=== PATIENT | male | born 1995 | race Caucasian/White ===

== ENCOUNTER 2020-04-20 03:22 | Inpatient (IN) ==
[2020-04-20] MEDS ORDERED: MULTI-VITAMIN INFUSION 10 ML, THIAMINE HCL 100 MG, FOLIC ACID 1 MG in SODIUM CHLORIDE 0... IV ONE ×2 (03:56→08:00)
[2020-04-20] MEDS ORDERED: LORazepam 1 MG/2 ML VIAL IV STA (03:56)
[2020-04-20 04:35] LABS: Appearance Urine Clear (Clear); Bilirubin Urine Negative (Negative); Blood Urine Negative (Negative); Color Urine Yellow; Glucose Urine UA Negative (Negative); Ketones Urine Negative (Negative); Leukocyte Esterase Urine Negative (Negative); Nitrite Urine Negative (Negative); Protein Urine Negative (Negative); Specific Gravity Urine 1.004 (1.000-1.030); Urobilinogen Urine Negative (Negative)
[2020-04-20 04:42] LABS: Partial Thromboplastin Ratio 0.8; Partial Thromboplastin Time 23.3 Seconds (21.0-31.0); Prothrombin Time 10.7 Seconds (9.0-12.0)
[2020-04-20 04:47] LABS: Basophils # (auto) 0.01 K/uL (0-0.2); Basophils % (auto) 0.1 %; Eosinophils # (auto) 0.01 K/uL (0-0.5); Eosinophils % (auto) 0.1 %; Hematocrit (blood only) 40.3 % (42-52); Hemoglobin 13.8 g/dL (14.0-18.0); Immature Granulocytes # (auto) 0.02 K/uL (0.00-0.02); Immature Granulocytes % (auto) 0.2 %; Lymphocytes # (auto) 0.69 K/uL (1.2-3.4); Lymphocytes % (auto) 6.8 %; Mean Corpuscular Hemoglobin 32.1 pg (25-34); Mean Corpuscular Hgb Conc 34.2 g/dL (32-36); Mean Corpuscular Volume 93.7 fL (80-100); Mean Platelet Volume 9.6 fL (7.4-10.4); Monocytes # (auto) 0.92 K/uL (0.11-0.59); Neutrophils # (auto) 8.56 K/uL (1.4-6.5); Neutrophils % (auto) 83.8 %; Platelet Count 214 K/uL (130-400); RDW Coefficient of Variation 13.1 % (11.5-14.5); RDW Standard Deviation 44.7 fL (36.4-46.3); White Blood Count 10.21 K/uL (4.8-10.8)
--- NOTE | 2020-04-20 04:51 | Emergency Department Note ---
History of Present Illness General Chief complaint: Alcohol Withdrawal Stated complaint: ALCOHOL WITHDRAWAL,CONFUSION History of Present Illness Maximum Pain Intensity: 6 This is a 25-year-old male presenting to the emergency department for alcohol withdrawal symptoms. The patient is an admitted alcoholic. It is very common for him to drink 15 or more beers on a daily basis. He also goes through a handle of whiskey on the weekend. This has been ongoing for several months if not longer. The patient evidently was seen at this facility a week ago for groin pain and possible rectal bleeding. At that time he had blood work that did show transaminitis which was felt to be from his alcohol use. The patient is very concerned about this, and is now committed to detoxing from alcohol. The patient states that on Friday, 3 days ago, he significantly decreased his drinking level. He is still having a drink roughly every 2 hours, which is roughly half of his normal rate. Tonight the patient began having irritation, irritability, strange sensation in his arms, as well as some self-reported confusion. He has not had chest pain, chest tightness, or shortness of breath. The patient considers himself otherwise usually healthy and rates his current discomfort a 7/10. Home Medications Home Medications Medication Instructions Recorded Confirmed Type lidocaine 1 patch TOP DAILY #15 ea 04/13/20 04/20/20 Rx Allergies Allergy/AdvReac Type Severity Reaction Status Date / Time No Known Allergies Allergy Unverified 04/20/20 03:36 Past Med/Surg History Medical History (Updated 04/20/20 @ 06:31 by Angeline Mullen DO) Alcohol dependence Surgical History (Updated 04/20/20 @ 04:50 by Gregg Fuentes PA-C) No significant past surgical history Family History (Updated 04/20/20 @ 06:29 by Angeline Mullen DO) Other Asthma Hypertension Social History (Updated 04/20/20 @ 06:29 by Angeline Mullen DO) Smoking Status: Never smoker Second Hand Exposure: No; Hx Alcohol Use: Yes Alcohol type: beer and hard liquor Hx Substance Use: No Preferred Language: Frisian Communication Ability: Effective 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 Beliefs That Will Affect Care: None marital status: Current Living Situation: Spouse Feels Safe at Home: Yes Assistive Devices: None Review of Systems A total of 10 systems reviewed and were otherwise negative Physical Exam Vital Signs Vital Signs - 24 hr 04/20/20 03:30 04/20/20 03:56 04/20/20 05:23 Temperature 37.2 C Temperature Source Oral Pulse Rate 125 H 94 H Pulse Rate [Apical] 98 H Respiratory Rate 18 18 18 Blood Pressure 154/96 H Blood Pressure [Right Arm] 135/80 Blood Pressure Mean 115 Blood Pressure Mean [Right Arm] 98 Blood Pressure Position [Right Arm] Lying Pulse Oximetry 96 96 96 Oxygen Delivery Method Room Air Room Air Free Flow/Blow- by Room Air Free Flow/Blow- by Sepsis Recent Fever Within 48 Hours No Sepsis New/Unexplained Change in Mental Status N/A Sepsis Action Taken by Nursing No Action Required VITALS: Vitals are noted on the nurse's note and reviewed by myself. Vital signs notable tachycardia GENERAL: Anxious appearing white male who is otherwise pleasant and cooperative HEAD: Normocephalic atraumatic. EARS: External ear normal. External auditory canals clear, tympanic membranes pearly lanier without erythema or effusion bilaterally. EYES: Pupils equal round and reactive to light and accommodation. Conjunctivae without injection, sclerae without icterus. Extraocular movements intact. NOSE: Patent, turbinates without inflammation or discharge. MOUTH: Mucous membranes moist. Tonsils are not enlarged. Pharynx without erythema, blood, or exudate. Uvula midline. Airway patent. NECK: Supple without nuchal rigidity. No lymphadenopathy. No thyromegaly. Cervical spine is nontender. HEART: Tachycardic rate with regular rhythm LUNGS: Clear to auscultation bilaterally without wheezes, rales or rhonchi. No retractions or accessory muscle use. ABDOMEN: Positive normal bowel sounds x 4. Soft, nontender, without masses or organomegaly. No guarding or rebound tenderness. MUSCULOSKELETAL: No muscle atrophy, erythema, or edema noted. Full range of motion in all extremities. NEURO: Patient was alert and oriented to person place and time. CN II through XII grossly intact. SKIN: The skin was without rashes, erythema, edema, or bruising. Capillary refill less than 2 seconds. Course Administered Medications Folic Acid (Folic Acid 1 Mg Tab) 1 mg PO QAM [facility] Stop: 05/20/20 08:59 Last Admin: 04/20/20 08:40 Dose: 1 mg Documented by: [id number] Sodium Chloride (Nss 1000ml) 1,000 mls @ 100 mls/hr IV .Q10H KEO Stop: 05/20/20 18:59 Last Admin: 04/20/20 20:04 Dose: 100 mls/hr Documented by: [id number] Thiamine HCl (Thiamine Hcl 100 Mg Tab) 200 mg PO BID KEO Stop: 05/20/20 20:59 Last Admin: 04/20/20 20:05 Dose: 200 mg Documented by: [id number] Discontinued Medications Diazepam (Diazepam 5 Mg Tablet) 20 mg PO NOW ONE Stop: 04/20/20 07:42 Last Admin: 04/20/20 08:34 Dose: 20 mg Documented by: [id number] Gabapentin (Gabapentin 600 Mg Tab) 1,200 mg PO NOW ONE Stop: 04/20/20 08:31 Last Admin: 04/20/20 08:39 Dose: 1,200 mg Documented by: [id number] Gabapentin (Gabapentin 600 Mg Tab) 600 mg PO Q6H KEO Stop: 04/20/20 20:01 Last Admin: 04/20/20 20:05 Dose: 600 mg Documented by: [id number] Admin: 04/20/20 13:22 Dose: 600 mg Documented by: [id number] Multivitamins 10 ml/ Thiamine HCl 100 mg/ Folic Acid 1 mg/Sodium Chloride 1,011.2 mls @ 1,011.2 mls/hr IV .Q1H ONE Stop: 04/20/20 04:55 Last Infusion: 04/20/20 06:38 Dose: 0 mls/hr Documented by: [id number] Admin: 04/20/20 05:04 Dose: 1,011.2 mls/hr Documented by: [id number] Lorazepam (Ativan) 1 mg in 2 mls @ 2 mls/min IV NOW STA Stop: 04/20/20 03:57 Last Admin: 04/20/20 04:20 Dose: 2 mls/min Documented by: [id number] Multivitamins 10 ml/ Thiamine HCl 100 mg/ Folic Acid 1 mg/Sodium Chloride 1,011.2 mls @ 500 mls/hr IV .Q2H2M ONE Stop: 04/20/20 10:01 Last Infusion: 04/20/20 10:33 Dose: 0 mls/hr Documented by: [id number] Admin: 04/20/20 08:28 Dose: 500 mls/hr Documented by: [id number] Ketorolac Tromethamine (Ketorolac Tromethamine 15 Mg/Ml Vial) 15 mg IV NOW ONE Stop: 04/20/20 20:39 Last Admin: 04/20/20 20:49 Dose: 15 mg Documented by: [id number] Thiamine HCl (Thiamine Hcl 100 Mg Tab) [facility] [place] Stop: 05/20/20 08:59 Last Admin: 04/20/20 08:40 Dose: 100 mg Documented by: [id number] Medical Decision Making Differential Diagnosis Differential diagnosis: Etiologies such as alcohol withdrawal, DTs, alcohol intoxication, toxicological, infection, hypoglycemia, electrolyte abnormalities, cardiac sources, intracerebral event, neurologic, as well as others were entertained. Laboratory Data Result diagrams: 04/20/20 04:18 04/20/20 04:18 Lab Results 04/20/20 04/20/20 04/20/20 Range/Units 04:18 04:18 04:18 WBC 10.21 (4.8-10.8) K/uL RBC 4.30 L (4.7-6.1) M/uL Hgb 13.8 L (14.0-18.0) g/dL Hct 40.3 L (42-52) % MCV 93.7 (80-100) fL MCH 32.1 (25-34) pg MCHC 34.2 (32-36) g/dL RDW Std Deviation 44.7 (36.4-46.3) fL RDW Coeff of Pee 13.1 (11.5-14.5) % Plt Count 214 (130-400) K/uL MPV 9.6 (7.4-10.4) fL Immature Gran % (Auto) 0.2 % Neut % (Auto) 83.8 % Lymph % (Auto) 6.8 % Sampson % (Auto) 9.0 % Eos % (Auto) 0.1 % Baso % (Auto) 0.1 % Neut # (Auto) 8.56 H (1.4-6.5) K/uL Lymph # (Auto) 0.69 L (1.2-3.4) K/uL Sampson # (Auto) 0.92 H (0.11-0.59) K/uL Eos # (Auto) 0.01 (0-0.5) K/uL Baso # (Auto) 0.01 (0-0.2) K/uL Immature Gran # (Auto) 0.02 (0.00-0.02) K/uL PT 10.7 (9.0-12.0) Seconds INR 1.0 (0.9-1.1) APTT 23.3 (21.0-31.0) Seconds PTT Ratio 0.8 Sodium 134 L (136-145) mmol/L Potassium 4.1 (3.5-5.1) mmol/L Chloride 98 (98-107) mmol/L Carbon Dioxide 27 (21-32) mmol/L Anion Gap 9.0 (3-11) BUN 4 L (7-18) mg/dl Creatinine 0.80 (0.6-1.4) mg/dl Est Cr Clr Drug Dosing 137.1 ml/min Est GFR ( Amer) 141.9 Est GFR (Non-Af Amer) 122.4 BUN/Creatinine Ratio 5.2 L (10-20) Glucose 100 H (70-99) mg/dl Calcium 9.3 (8.5-10.1) mg/dl Magnesium 2.1 (1.8-2.4) mg/dl Total Bilirubin 0.9 (0.2-1) mg/dl AST 244 H (15-37) U/L ALT 160 H (12-78) U/L Alkaline Phosphatase 108 (45-117) U/L Troponin I < 0.015 (0-0.045) ng/ml Total Protein 7.6 (6.4-8.2) gm/dl Albumin 3.8 (3.4-5.0) gm/dl Globulin 3.8 (2.5-4.0) gm/dl Albumin/Globulin Ratio 1.0 (0.9-2) Lipase 101 (73-393) U/L TSH 4.680 H (0.300-4.500) uIu/ml Free T4 1.27 (0.8-1.6) ng/dl Urine Color Urine Appearance (Clear) Urine pH (4.5-7.5) Ur Specific [place] (1.000-1.030) Urine Protein (Negative) Urine Glucose (UA) (Negative) Urine Ketones (Negative) Urine Blood (Negative) Urine Nitrite (Negative) Urine Bilirubin (Negative) Urine Urobilinogen (Negative) Ur Leukocyte Esterase (Negative) Salicylates (2.8-20) mg/dl Urine Opiates Screen (Neg) Ur Methadone, Qual (Neg) Acetaminophen (10-30) ug/ml Urine Barbiturates (Neg) Ur Phencyclidine (PCP) (Neg) U Amphetamin/Meth Scrn (Neg) MDMA (Ecstasy) Screen (Neg) U Benzodiazepines Scrn (Neg) Ur Cocaine Metabolite (Neg) U Marijuana (THC) Screen (Neg) Ethyl Alcohol mg/dL (0-3) mg/dl 04/20/20 04/20/20 04/20/20 Range/Units 04:18 04:18 04:20 WBC (4.8-10.8) K/uL RBC (4.7-6.1) M/uL Hgb (14.0-18.0) g/dL Hct (42-52) % MCV (80-100) fL MCH (25-34) pg MCHC (32-36) g/dL RDW Std Deviation (36.4-46.3) fL RDW Coeff of Pee (11.5-14.5) % Plt Count (130-400) K/uL MPV (7.4-10.4) fL Immature Gran % (Auto) % Neut % (Auto) % Lymph % (Auto) % Sampson % (Auto) % Eos % (Auto) % Baso % (Auto) % Neut # (Auto) (1.4-6.5) K/uL Lymph # (Auto) (1.2-3.4) K/uL Sampson # (Auto) (0.11-0.59) K/uL Eos # (Auto) (0-0.5) K/uL Baso # (Auto) (0-0.2) K/uL Immature Gran # (Auto) (0.00-0.02) K/uL PT (9.0-12.0) Seconds INR (0.9-1.1) APTT (21.0-31.0) Seconds PTT Ratio Sodium (136-145) mmol/L Potassium (3.5-5.1) mmol/L Chloride (98-107) mmol/L Carbon Dioxide (21-32) mmol/L Anion Gap (3-11) BUN (7-18) mg/dl Creatinine (0.6-1.4) mg/dl Est Cr Clr Drug Dosing ml/min Est GFR ( Amer) Est GFR (Non-Af Amer) BUN/Creatinine Ratio (10-20) Glucose (70-99) mg/dl Calcium (8.5-10.1) mg/dl Magnesium (1.8-2.4) mg/dl Total Bilirubin (0.2-1) mg/dl AST (15-37) U/L ALT (12-78) U/L Alkaline Phosphatase (45-117) U/L Troponin I (0-0.045) ng/ml Total Protein (6.4-8.2) gm/dl Albumin (3.4-5.0) gm/dl Globulin (2.5-4.0) gm/dl Albumin/Globulin Ratio (0.9-2) Lipase (73-393) U/L TSH (0.300-4.500) uIu/ml Free T4 (0.8-1.6) ng/dl Urine Color Yellow Urine Appearance Clear (Clear) Urine pH 8.0 H (4.5-7.5) Ur Specific [place] 1.004 (1.000-1.030) Urine Protein Negative (Negative) Urine Glucose (UA) Negative (Negative) Urine Ketones Negative (Negative) Urine Blood Negative (Negative) Urine Nitrite Negative (Negative) Urine Bilirubin Negative (Negative) Urine Urobilinogen Negative (Negative) Ur Leukocyte Esterase Negative (Negative) Salicylates < 1.7 L (2.8-20) mg/dl Urine Opiates Screen Neg (Neg) Ur Methadone, Qual Neg (Neg) Acetaminophen < 2 L (10-30) ug/ml Urine Barbiturates Neg (Neg) Ur Phencyclidine (PCP) Neg (Neg) U Amphetamin/Meth Scrn Neg (Neg) MDMA (Ecstasy) Screen Neg (Neg) U Benzodiazepines Scrn Neg (Neg) Ur Cocaine Metabolite Neg (Neg) U Marijuana (THC) Screen Neg (Neg) Ethyl Alcohol mg/dL (0-3) mg/dl 04/20/20 Range/Units 04:22 WBC (4.8-10.8) K/uL RBC (4.7-6.1) M/uL Hgb (14.0-18.0) g/dL Hct (42-52) % MCV (80-100) fL MCH (25-34) pg MCHC (32-36) g/dL RDW Std Deviation (36.4-46.3) fL RDW Coeff of Pee (11.5-14.5) % Plt Count (130-400) K/uL MPV (7.4-10.4) fL Immature Gran % (Auto) % Neut % (Auto) % Lymph % (Auto) % Sampson % (Auto) % Eos % (Auto) % Baso % (Auto) % Neut # (Auto) (1.4-6.5) K/uL Lymph # (Auto) (1.2-3.4) K/uL Sampson # (Auto) (0.11-0.59) K/uL Eos # (Auto) (0-0.5) K/uL Baso # (Auto) (0-0.2) K/uL Immature Gran # (Auto) (0.00-0.02) K/uL PT (9.0-12.0) Seconds INR (0.9-1.1) APTT (21.0-31.0) Seconds PTT Ratio Sodium (136-145) mmol/L Potassium (3.5-5.1) mmol/L Chloride (98-107) mmol/L Carbon Dioxide (21-32) mmol/L Anion Gap (3-11) BUN (7-18) mg/dl Creatinine (0.6-1.4) mg/dl Est Cr Clr Drug Dosing ml/min Est GFR ( Amer) Est GFR (Non-Af Amer) BUN/Creatinine Ratio (10-20) Glucose (70-99) mg/dl Calcium (8.5-10.1) mg/dl Magnesium (1.8-2.4) mg/dl Total Bilirubin (0.2-1) mg/dl AST (15-37) U/L ALT (12-78) U/L Alkaline Phosphatase (45-117) U/L Troponin I (0-0.045) ng/ml Total Protein (6.4-8.2) gm/dl Albumin (3.4-5.0) gm/dl Globulin (2.5-4.0) gm/dl Albumin/Globulin Ratio (0.9-2) Lipase (73-393) U/L TSH (0.300-4.500) uIu/ml Free T4 (0.8-1.6) ng/dl Urine Color Urine Appearance (Clear) Urine pH (4.5-7.5) Ur Specific [place] (1.000-1.030) Urine Protein (Negative) Urine Glucose (UA) (Negative) Urine Ketones (Negative) Urine Blood (Negative) Urine Nitrite (Negative) Urine Bilirubin (Negative) Urine Urobilinogen (Negative) Ur Leukocyte Esterase (Negative) Salicylates (2.8-20) mg/dl Urine Opiates Screen (Neg) Ur Methadone, Qual (Neg) Acetaminophen (10-30) ug/ml Urine Barbiturates (Neg) Ur Phencyclidine (PCP) (Neg) U Amphetamin/Meth Scrn (Neg) MDMA (Ecstasy) Screen (Neg) U Benzodiazepines Scrn (Neg) Ur Cocaine Metabolite (Neg) U Marijuana (THC) Screen (Neg) Ethyl Alcohol mg/dL 49.0 H (0-3) mg/dl MDM Narrative Physical exam and history were performed. Nursing notes, EMR, and Medication List were personally reviewed. Patient appears to have a history of alcohol dependence and abuse. He is complaining of more confusion today and difficulty with vision. On examination he seems to relate a good story and is not slurring his words. He does not appear grossly intoxicated, however on initial presentation he is cardiac. IV access was established and labs were obtained. The patient was given a banana bag and IV Ativan. The patient's blood work is as above and was reviewed. He does not have a significant white blood cell count. He is minimally anemic at 13.8. Transaminases are slightly elevated, however they are improved from 1 week ago. Lipase is normal. TSH is minimally elevated at 4.6 with a normal free T4. Urine is without gross evidence of infection. Tylenol and salicylates are negative. Alcohol is 49. Patient was reevaluated multiple times throughout the course of his stay. He does not appear well for discharge home. He does voice a strong desire to quit drinking, and based on his level of alcohol use I am highly concerned for him withdrawing. The case was discussed with the on-call hospitalist, who agreed to evaluate the patient here in the ER. Please see their dictation for further patient course, plan, and disposition. The chart was completed utilizing [employer] 360 Speech Voice Recognition Software. Gra mmatical errors, random word insertions, pronoun errors, and incomplete sentences are an occasional consequence of this system due to software limitations, ambient noise, and hardware issues. Any formal questions or concerns about the content, text, or information contained within the body of this dictation should be directly addressed to the provider for clarification. . Impression & Plan Alcohol withdrawal, Transaminitis, Alcohol dependence Discharge Plan Visit Data Chief Complaint: Alcohol Withdrawal Stated Complaint: ALCOHOL WITHDRAWAL,CONFUSION ED Provider: Farzana Elder ED Midlevel Provider: Gregg Fuentes Discharge Problem: Alcohol withdrawal, Transaminitis, Alcohol dependence Patient Disposition: Admitted As Inpatient Discharge Instructions Interventions: ED Discharge Assessment Last Done: 04/20/20 07:04
[2020-04-20 05:02] LABS: Alanine Aminotransferase 160 U/L (12-78); Albumin Level 3.8 gm/dl (3.4-5.0); Alkaline Phosphatase 108 U/L (45-117); Aspartate Aminotransferase 244 U/L (15-37); BUN Creatinine Ratio 5.2 (10-20); Bilirubin,Total 0.9 mg/dl (0.2-1); Blood Urea Nitrogen 4 mg/dl (7-18); Calcium 9.3 mg/dl (8.5-10.1); Carbon Dioxide 27 mmol/L (21-32); Chloride 98 mmol/L (98-107); Creatinine Clr Calc Pharmacy 137.1 ml/min; Est GFR (African American) 141.9; Est GFR (Non-African American) 122.4; Globulin 3.8 gm/dl (2.5-4.0); Glucose 100 mg/dl (70-99); Lipase 101 U/L (73-393); Magnesium 2.1 mg/dl (1.8-2.4); Potassium 4.1 mmol/L (3.5-5.1); Sodium 134 mmol/L (136-145); Total Protein 7.6 gm/dl (6.4-8.2)
[2020-04-20 05:04] LABS: Acetaminophen < 2 ug/ml (10-30)
[2020-04-20 05:07] LABS: Salicylate < 1.7 mg/dl (2.8-20)
[2020-04-20 05:08] LABS: Amphetamines+Metham, Urine Neg (Neg); Barbiturates, Urine Neg (Neg); Benzodiazepine, Urine Neg (Neg); Cocaine, Urine Neg (Neg); MDMA (Ecstacy), Urine Neg (Neg); Methadone, Urine Neg (Neg); Opiate, Urine Neg (Neg); Phencyclidine, Urine Neg (Neg)
[2020-04-20 05:10] LABS: Troponin I < 0.015 ng/ml (0-0.045)
[2020-04-20 05:23] LABS: T4 Free Thyroxine 1.27 ng/dl (0.8-1.6)
--- NOTE | 2020-04-20 06:39 | History & Physical Report ---
Date of Service April 20, 2020 Assessment & Plan (1) Alcohol dependence: 25yo C male with alcohol dependence presenting with symptoms of EtOH withdrawal. Patient is requesting to medically detox at this time. Reports drinking 8-15 drinks per day over the last few years. Has been decreasing his intake over the last three days in attempt to wean himself off. He reports confusion/memory loss and feeling "out of place" today which brought him to the ER. Patient is tremulous. EtOH level=49 Imaging from previous ER visit with fatty infiltration of the liver. Patient with elevated AST and ALT, 244 and 160, respectively. Synthetic liver function preserved with normal albumin, INR, bilirubin and platelets. -Admit to PCU -Check B12, Folate levels -Monitor labs, electrolytes and liver studies -Valium 20mg po x 1 -Gabapentin taper -Thiamine and Folate supplement -AWSS with IV Ativan for active withdrawal protocol -Thiamine and B12 supplementation daily -Patient congratulated on his steps taken toward more positive health - he wishes to be provided with information regarding rehab sources, AA meetings, etc F/E/N - Banana bag x 500mL, electrolytes WNL, regular diet as tolerated Ppx - Low risk for DVT Code - Full Dispo - Admit to PCU Present on Admission?: Yes History of Present Illness Chief Complaint: alcohol withdrawal Primary Care Provider: [facility] Virgil Bartholomew is a 25yo C male presenting for alcohol detoxification. He reports heavy EtOH consumption over the past few years. Over the last year he has been drinking mainly beer - consumes 8-12 beers per day, at times more than 15 per day. He drinks whiskey on the weekends and will drink a handle of whiskey over two days. He was seen at [facility] on 04/13/20 with complaint of testicular pain and rectal bleeding. He had labs at that time which revealed elevated transaminase levels (FHF=232 and EQD=535) He also had CT imaging that confirmed marked fatty infiltration of the liver. Patient was counselled on his EtOH consumption at that time. Since then he has been trying to cut down on his alcohol intake and make positive life changes. He has been significantly decreasing his EtOH intake over the last three days - still drinking every 2 hours or so. He had an episode of altered sensorium today - transient confusion, forgetfulness and memory loss. He states he felt "very out of place". This is what prompted him to come to the ER. 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 He is and lives with his . He works from home and denies any sick contacts or positive Covid-19 contacts. No seizure No fevers/chills/CP/cough/SOB/nausea/vomiting/constipation. He has had some diarrhea. No additional complaints. ER Course: Ativan 1mg, Banana bag Allergies Allergy/AdvReac Type Severity Reaction Status Date / Time No Known Allergies Allergy Unverified 04/20/20 03:36 Home Medications Home Medications Medication Instructions Recorded Confirmed Type lidocaine 1 patch TOP DAILY #15 ea 04/13/20 04/20/20 Rx Past Med/Surg History Medical History (Updated 04/20/20 @ 06:31 by Angeline Mullen DO) Alcohol dependence Surgical History (Updated 04/20/20 @ 04:50 by Gregg Fuentes PA-C) No significant past surgical history Family History (Updated 04/20/20 @ 06:29 by Angeline Mullen DO) Other Asthma Hypertension Social History (Updated 04/20/20 @ 06:29 by Angeline Mullen DO) Smoking Status: Never smoker Hx Alcohol Use: Yes Hx Substance Use: No Preferred Language: Greek Feels Safe at Home: Yes Review of Systems Review of Systems: All systems reviewed & are unremarkable except as noted in HPI & below Physical Exam Physical Exam: General: patient resting comfortably, NAD, non-toxic in appearance, AA&O x 4, tremulous Skin: warm, dry, intact, no rashes or lesions HEENT: NC/AT, PERRL, EOMI, anicteric sclera, conjunctiva without injection, external ear normal to inspection and nontender, nares patent, moist mucus membranes, dentition intact, no oropharyngeal lesions, neck supple, trachea midline, no LAD, no thyromegaly, no JVD Heart: +S1/S2, regular, no m/r/g Lungs: equal air entry bilaterally, no rales/rhonchi/wheezes Abd: +BS, soft, NT/ND, no masses/organomegaly/ascites Ext: warm, 2+ pulses in UE/LE bilaterally, no clubbing/cyanosis or edema Neuro: nonfocal, patient AA&O x 4, speech intact, no facial droop, moving all extremities on command with equal strength 5/5 Results & Data Results & Data ([facility]) Vital Signs (Past 12 Hours) Vital Signs Temp Pulse Resp BP Pulse Ox 04/20/20 03:56 94 H 18 96 04/20/20 03:30 37.2 C 125 H 18 154/96 H 96 Laboratory Results Lab Results 04/20/20 04/20/20 04/20/20 Range/Units 04:18 04:18 04:18 WBC 10.21 (4.8-10.8) K/uL RBC 4.30 L (4.7-6.1) M/uL Hgb 13.8 L (14.0-18.0) g/dL Hct 40.3 L (42-52) % MCV 93.7 (80-100) fL MCH 32.1 (25-34) pg MCHC 34.2 (32-36) g/dL RDW Std Deviation 44.7 (36.4-46.3) fL RDW Coeff of Pee 13.1 (11.5-14.5) % Plt Count 214 (130-400) K/uL MPV 9.6 (7.4-10.4) fL Immature Gran % (Auto) 0.2 % Neut % (Auto) 83.8 % Lymph % (Auto) 6.8 % [place] % (Auto) 9.0 % Eos % (Auto) 0.1 % Baso % (Auto) 0.1 % Neut # (Auto) 8.56 H (1.4-6.5) K/uL Lymph # (Auto) 0.69 L (1.2-3.4) K/uL [place] # (Auto) 0.92 H (0.11-0.59) K/uL Eos # (Auto) 0.01 (0-0.5) K/uL Baso # (Auto) 0.01 (0-0.2) K/uL Immature Gran # (Auto) 0.02 (0.00-0.02) K/uL PT 10.7 (9.0-12.0) Seconds INR 1.0 (0.9-1.1) APTT 23.3 (21.0-31.0) Seconds PTT Ratio 0.8 Sodium 134 L (136-145) mmol/L Potassium 4.1 (3.5-5.1) mmol/L Chloride 98 (98-107) mmol/L Carbon Dioxide 27 (21-32) mmol/L Anion Gap 9.0 (3-11) BUN 4 L (7-18) mg/dl Creatinine 0.80 (0.6-1.4) mg/dl Est Cr Clr Drug Dosing 137.1 ml/min Est GFR ( Amer) 141.9 Est GFR (Non-Af Amer) 122.4 BUN/Creatinine Ratio 5.2 L (10-20) Glucose 100 H (70-99) mg/dl Calcium 9.3 (8.5-10.1) mg/dl Magnesium 2.1 (1.8-2.4) mg/dl Total Bilirubin 0.9 (0.2-1) mg/dl AST 244 H (15-37) U/L ALT 160 H (12-78) U/L Alkaline Phosphatase 108 (45-117) U/L Troponin I < 0.015 (0-0.045) ng/ml Total Protein 7.6 (6.4-8.2) gm/dl Albumin 3.8 (3.4-5.0) gm/dl Globulin 3.8 (2.5-4.0) gm/dl Albumin/Globulin Ratio 1.0 (0.9-2) Lipase 101 (73-393) U/L TSH 4.680 H (0.300-4.500) uIu/ml Free T4 1.27 (0.8-1.6) ng/dl Urine Color Urine Appearance (Clear) Urine pH (4.5-7.5) Ur Specific [place] (1.000-1.030) Urine Protein (Negative) Urine Glucose (UA) (Negative) Urine Ketones (Negative) Urine Blood (Negative) Urine Nitrite (Negative) Urine Bilirubin (Negative) Urine Urobilinogen (Negative) Ur Leukocyte Esterase (Negative) Salicylates (2.8-20) mg/dl Urine Opiates Screen (Neg) Ur Methadone, Qual (Neg) Acetaminophen (10-30) ug/ml Urine Barbiturates (Neg) Ur Phencyclidine (PCP) (Neg) U Amphetamin/Meth Scrn (Neg) MDMA (Ecstasy) Screen (Neg) U Benzodiazepines Scrn (Neg) Ur Cocaine Metabolite (Neg) U Marijuana (THC) Screen (Neg) Ethyl Alcohol mg/dL (0-3) mg/dl 04/20/20 04/20/20 04/20/20 Range/Units 04:18 04:18 04:20 WBC (4.8-10.8) K/uL RBC (4.7-6.1) M/uL Hgb (14.0-18.0) g/dL Hct (42-52) % MCV (80-100) fL MCH (25-34) pg MCHC (32-36) g/dL RDW Std Deviation (36.4-46.3) fL RDW Coeff of Pee (11.5-14.5) % Plt Count (130-400) K/uL MPV (7.4-10.4) fL Immature Gran % (Auto) % Neut % (Auto) % Lymph % (Auto) % [place] % (Auto) % Eos % (Auto) % Baso % (Auto) % Neut # (Auto) (1.4-6.5) K/uL Lymph # (Auto) (1.2-3.4) K/uL [place] # (Auto) (0.11-0.59) K/uL Eos # (Auto) (0-0.5) K/uL Baso # (Auto) (0-0.2) K/uL Immature Gran # (Auto) (0.00-0.02) K/uL PT (9.0-12.0) Seconds INR (0.9-1.1) APTT (21.0-31.0) Seconds PTT Ratio Sodium (136-145) mmol/L Potassium (3.5-5.1) mmol/L Chloride (98-107) mmol/L Carbon Dioxide (21-32) mmol/L Anion Gap (3-11) BUN (7-18) mg/dl Creatinine (0.6-1.4) mg/dl Est Cr Clr Drug Dosing ml/min Est GFR ( Amer) Est GFR (Non-Af Amer) BUN/Creatinine Ratio (10-20) Glucose (70-99) mg/dl Calcium (8.5-10.1) mg/dl Magnesium (1.8-2.4) mg/dl Total Bilirubin (0.2-1) mg/dl AST (15-37) U/L ALT (12-78) U/L Alkaline Phosphatase (45-117) U/L Troponin I (0-0.045) ng/ml Total Protein (6.4-8.2) gm/dl Albumin (3.4-5.0) gm/dl Globulin (2.5-4.0) gm/dl Albumin/Globulin Ratio (0.9-2) Lipase (73-393) U/L TSH (0.300-4.500) uIu/ml Free T4 (0.8-1.6) ng/dl Urine Color Yellow Urine Appearance Clear (Clear) Urine pH 8.0 H (4.5-7.5) Ur Specific [place] 1.004 (1.000-1.030) Urine Protein Negative (Negative) Urine Glucose (UA) Negative (Negative) Urine Ketones Negative (Negative) Urine Blood Negative (Negative) Urine Nitrite Negative (Negative) Urine Bilirubin Negative (Negative) Urine Urobilinogen Negative (Negative) Ur Leukocyte Esterase Negative (Negative) Salicylates < 1.7 L (2.8-20) mg/dl Urine Opiates Screen Neg (Neg) Ur Methadone, Qual Neg (Neg) Acetaminophen < 2 L (10-30) ug/ml Urine Barbiturates Neg (Neg) Ur Phencyclidine (PCP) Neg (Neg) U Amphetamin/Meth Scrn Neg (Neg) MDMA (Ecstasy) Screen Neg (Neg) U Benzodiazepines Scrn Neg (Neg) Ur Cocaine Metabolite Neg (Neg) U Marijuana (THC) Screen Neg (Neg) Ethyl Alcohol mg/dL (0-3) mg/dl 04/20/20 Range/Units 04:22 WBC (4.8-10.8) K/uL RBC (4.7-6.1) M/uL Hgb (14.0-18.0) g/dL Hct (42-52) % MCV (80-100) fL MCH (25-34) pg MCHC (32-36) g/dL RDW Std Deviation (36.4-46.3) fL RDW Coeff of Pee (11.5-14.5) % Plt Count (130-400) K/uL MPV (7.4-10.4) fL Immature Gran % (Auto) % Neut % (Auto) % Lymph % (Auto) % [place] % (Auto) % Eos % (Auto) % Baso % (Auto) % Neut # (Auto) (1.4-6.5) K/uL Lymph # (Auto) (1.2-3.4) K/uL [place] # (Auto) (0.11-0.59) K/uL Eos # (Auto) (0-0.5) K/uL Baso # (Auto) (0-0.2) K/uL Immature Gran # (Auto) (0.00-0.02) K/uL PT (9.0-12.0) Seconds INR (0.9-1.1) APTT (21.0-31.0) Seconds PTT Ratio Sodium (136-145) mmol/L Potassium (3.5-5.1) mmol/L Chloride (98-107) mmol/L Carbon Dioxide (21-32) mmol/L Anion Gap (3-11) BUN (7-18) mg/dl Creatinine (0.6-1.4) mg/dl Est Cr Clr Drug Dosing ml/min Est GFR ( Amer) Est GFR (Non-Af Amer) BUN/Creatinine Ratio (10-20) Glucose (70-99) mg/dl Calcium (8.5-10.1) mg/dl Magnesium (1.8-2.4) mg/dl Total Bilirubin (0.2-1) mg/dl AST (15-37) U/L ALT (12-78) U/L Alkaline Phosphatase (45-117) U/L Troponin I (0-0.045) ng/ml Total Protein (6.4-8.2) gm/dl Albumin (3.4-5.0) gm/dl Globulin (2.5-4.0) gm/dl Albumin/Globulin Ratio (0.9-2) Lipase (73-393) U/L TSH (0.300-4.500) uIu/ml Free T4 (0.8-1.6) ng/dl Urine Color Urine Appearance (Clear) Urine pH (4.5-7.5) Ur Specific [place] (1.000-1.030) Urine Protein (Negative) Urine Glucose (UA) (Negative) Urine Ketones (Negative) Urine Blood (Negative) Urine Nitrite (Negative) Urine Bilirubin (Negative) Urine Urobilinogen (Negative) Ur Leukocyte Esterase (Negative) Salicylates (2.8-20) mg/dl Urine Opiates Screen (Neg) Ur Methadone, Qual (Neg) Acetaminophen (10-30) ug/ml Urine Barbiturates (Neg) Ur Phencyclidine (PCP) (Neg) U Amphetamin/Meth Scrn (Neg) MDMA (Ecstasy) Screen (Neg) U Benzodiazepines Scrn (Neg) Ur Cocaine Metabolite (Neg) U Marijuana (THC) Screen (Neg) Ethyl Alcohol mg/dL 49.0 H (0-3) mg/dl Code Status & VTE Plan Code Status Full PG Care Time/CCT Total # of Minutes Spent Total Time Spent with Patient: Total time spent is greater than 50% in coordination of care (as documented) at patient's floor/unit and/or counseling patient: Coding Level of Care Code 99011 Initial Inpt Care Lvl 2 Diagnoses Alcohol dependence F10.232 Substance use status: in withdrawal Complication of substance-induced condition: with perceptual disturbance (1) Alcohol dependence Substance use status: in withdrawal Complication of substance-induced condition: with perceptual disturbance Qualified Code(s): F10.232 - Alcohol dependence with withdrawal with perceptual disturbance
[2020-04-20] MEDS ORDERED: ATIVAN IV ALCOHOL WITHDRAWL IV PRN (07:41)
[2020-04-20] MEDS ORDERED: LORazepam 1 MG/2 ML VIAL IV PRN (07:41)
[2020-04-20] MEDS ORDERED: MAGNESIUM HYDROXIDE SUSP 30 ML UDC PO PRN (07:41)
[2020-04-20] MEDS ORDERED: diazePAM 5 MG TABLET PO ONE (07:41)
[2020-04-20] MEDS ORDERED: LORazepam 3 MG/6 ML VIAL IV PRN (07:41)
[2020-04-20] MEDS ORDERED: ONDANSETRON INJ 2 MG/ML 2 ML VIAL IV PRN (07:41)
[2020-04-20] MEDS ORDERED: GABAPENTIN 1200MG ALCOHOL WITHDRAWAL LOAD PO STA (07:41)
[2020-04-20] MEDS ORDERED: DOCUSATE SODIUM 100 MG CAP PO PRN (07:41)
[2020-04-20] MEDS ORDERED: LORazepam 2 MG/4 ML VIAL IV PRN (07:41)
[2020-04-20] MEDS ORDERED: GABAPENTIN 600 MG TAB PO ONE (08:30)
[2020-04-20] MEDS: FOLIC ACID 1 MG TAB PO SCH (08:40)
[2020-04-20] MEDS ORDERED: THIAMINE HCL 100 MG TAB PO SCH (09:00)
[2020-04-20] MEDS: GABAPENTIN 600 MG TAB PO SCH ×2 (13:22→20:05)
--- NOTE | 2020-04-20 18:59 | Communication Note ---
Date of Service: April 20, 2020 S: patient was sleeping upon my arrival. Awoke easily. Upon awakening he c/o feeling groggy but was oriented x 3. Denied palpitations, diaphoresis, severe anxiety or tremors. Able to tolerate a diet. Tele since admission with NSR. O: VSS, no fever gen - NAD mouth - MMM heart - borderline tachy, s1 s2, no murmur lungs - CTA b/l abd - soft NT ND BS+; no HSM ext - no edema neuro - no tremor labs - Na 134 AST, ALT elevated CBC wnl Cr wnl A/P: 1. alcohol abuse/dependence 2. concern for early alcohol withdrawal 3. hyponatremia 4. alcoholic hepatitis * continue gabapentin protocol * ativan prn per protocol * increase thiamine to 200mg BID * cont MVI, folate supplementation * NS at 100cc/hr * repeat labs in am Patient declining inpatient etoh rehab after d/c; wishes to do everything outpatient. Ted Garcia MD
[2020-04-20] MEDS: SODIUM CHLORIDE 0.9% 1000ML 1,000 ML IV SCH (20:04)
[2020-04-20] MEDS: THIAMINE HCL 100 MG TAB PO SCH (20:05)
[2020-04-20] MEDS ORDERED: KETOROLAC TROMETHAMINE 15 MG/ML VIAL IV ONE (20:38)
[2020-04-21] MEDS: SODIUM CHLORIDE 0.9% 1000ML 1,000 ML IV SCH ×2 (03:27→14:36)
[2020-04-21] MEDS: GABAPENTIN 600 MG TAB PO SCH ×3 (03:27→21:12)
[2020-04-21 06:43] LABS: BUN Creatinine Ratio 7.4 (10-20); Bilirubin Direct 0.3 mg/dl (0-0.2); Bilirubin,Total 0.7 mg/dl (0.2-1); Calcium 8.4 mg/dl (8.5-10.1); Creatinine Clr Calc Pharmacy 140.8 ml/min; Est GFR (African American) 143.4; Est GFR (Non-African American) 123.7; Total Protein 6.5 gm/dl (6.4-8.2)
[2020-04-21] MEDS: THIAMINE HCL 100 MG TAB PO SCH ×2 (08:14→21:12)
[2020-04-21] MEDS: FOLIC ACID 1 MG TAB PO SCH (08:15)
--- NOTE | 2020-04-21 12:31 | Electrocardiogram Report ---
Test Reason : Blood Pressure : / mmHG Vent. Rate : 093 BPM Atrial Rate : 093 BPM P-R Int : 162 ms QRS Dur : 086 ms QT Int : 336 ms P-R-T Axes : 066 029 059 degrees QTc Int : 417 ms Normal sinus rhythm Normal ECG No previous ECGs available Confirmed by Martín Prasad ([id number]) on 04/21/2020 12:30:44 PM Referred By: REFERRED SELF Confirmed By:Martín Prasad
[2020-04-21] MEDS ORDERED: LORazepam 1 MG TAB PO PRN (17:36)
--- NOTE | 2020-04-21 17:42 | Hospitalist Progress Note ---
Date of Service April 21, 2020 Assessment & Plan (1) Alcohol withdrawal: Had confusion just prior to admission. This resolved on hospital day #1. Withdrawal appears to be mild based on IV ativan usage. Continues with gabapentin protocol. Continue thiamine 200mg BID, folic acid, MVI. Cut fluid rate to 50cc/hr - patient overall eating well. He is about 2 days out from his last etoh beverage. If withdrawal was to worsen it would occur tonight into tomorrow. Keep overnight. Observe for worsening symptoms. Assess need for IV ativan. If stable in am with minimal prn ativan usage, and if no worsening of withdrawal, can likely d/c home with remaining gabapentin taper and PO ativan prn. He declines inpatient etoh rehab. Wishes to do outpatient programs. (2) Alcohol dependence: Severe etoh intake (10-15+ drinks/day). Now with withdrawal. See above. (3) Transaminitis: Likely alcoholic hepatitis. Improving AST and ALT. Recheck both in am. (4) Sore throat: In light of COVID-19 spread in the [place] area and on the [facility] campus - and given his new sore throat with myalgias - elected to obtain COVID-19 test today. This returned negative. If symptoms worsen then obtain rapid strep test. (5) Myalgia: See above. COVID-19 testing negative. (6) DVT prophylaxis: Low risk. Encouraged to ambulate. Potential d/c on Friday. Admission and Anticipated Discharge Date Admission Date: April 20, 2020 Subjective tele stable overnight. mild diaphoresis at times. no confusion or delirium. eating well. no nausea, emesis, diarrhea. does report feeling achy in his legs along with mild sore throat beginning overnight. denies that he was in attendance at any republican/gathering in the weeks leading up to this admission. has not been on campus. has not gone to any downtown bars/restaurants. lives with and they generally speaking stay home. Review of Systems Constitutional: + sweats and + body aches; no fever, no chills and no anorexia Respiratory: no cough and no dyspnea Cardiovascular: no chest pain Gastrointestinal: no nausea, no vomiting and no diarrhea/loose stools Integumentary: no rash Physical Exam Constitutional: well developed and well nourished; no acute distress and no altered mental status ENMT: Mouth: + oropharynx abnormality (mild erythema; tonsils mildly enlarged ) Respiratory: normal respiratory effort, lungs clear to auscultation Cardiovascular: Rate/Rhythm: regular rate and regular rhythm Heart Sounds: normal S1 and normal S2; no murmur Vessels: posterior tibial pulses present a nd dorsalis pedis pulses present; no JVD Extremities: no edema Gastrointestinal (Abdomen): normal bowel sounds, soft, nontender, no hepatosplenomegaly Skin: no rashes Neurologic: Motor/Sensory: no tremor Psychiatric: Orientation: alert and oriented x 3 Lymphatic: + cervical lymphadenopathy (shotty nodes left neck ) Results & Data Results & Data ([facility]) Vital Signs (Past 12 Hours) Vital Signs Temp Pulse Pulse Resp BP BP Pulse Ox 04/21/20 11:36 36.6 C 81 18 146/89 H 97 04/21/20 08:00 36.5 C 84 18 133/103 H 100 Laboratory Results Laboratory Results - last 24 hr 04/21/20 04/21/20 04/21/20 05:28 15:00 15:00 Sodium 142 D Potassium 4.0 Chloride 109 H Carbon Dioxide 30 Anion Gap 3.0 BUN 6 L Creatinine 0.78 Est Cr Clr Drug Dosing 140.8 Est GFR ( Amer) 143.4 Est GFR (Non-Af Amer) 123.7 BUN/Creatinine Ratio 7.4 L Glucose 90 Calcium 8.4 L Total Bilirubin 0.7 Direct Bilirubin 0.3 H AST 192 H ALT 149 H Alkaline Phosphatase 89 Total Protein 6.5 Albumin 3.0 L COVID-19 Eval Order Covid19 IDNow atMTNC SARS-CoV-2, RNA, NAAT NEGATIVE PG Care Time/CCT Total # of Minutes Spent Total Time Spent with Patient: Total time spent is greater than 50% in coordination of care (as documented) at patient's floor/unit and/or counseling patient: Coding Level of Care Code 23016 Subseq Hosp Care Lvl 2 Diagnoses Alcohol withdrawal F10.231 Complication of substance-induced condition: with delirium Alcohol dependence F10.232 Substance use status: in withdrawal Complication of substance-induced condition: with perceptual disturbance Transaminitis R74.0 Sore throat J02.9 Myalgia M79.10 DVT prophylaxis Z29.9 (1) Alcohol dependence Substance use status: in withdrawal Complication of substance-induced condition: with perceptual disturbance Qualified Code(s): F10.232 - Alcohol dependence with withdrawal with perceptual disturbance (2) Alcohol withdrawal Complication of substance-induced condition: with delirium Qualified Code(s): F10.231 - Alcohol dependence with withdrawal delirium
[2020-04-22] MEDS: SODIUM CHLORIDE 0.9% 1000ML 1,000 ML IV SCH (00:10)
[2020-04-22 06:28] LABS: BUN Creatinine Ratio 6.9 (10-20); Calcium 9.1 mg/dl (8.5-10.1); Creatinine Clr Calc Pharmacy 156.7 ml/min; Est GFR (African American) 149.9; Est GFR (Non-African American) 129.3
[2020-04-22] MEDS ORDERED: GABAPENTIN 600 MG TAB PO SCH (08:00)
[2020-04-22] MEDS: THIAMINE HCL 100 MG TAB PO SCH (08:35)
[2020-04-22] MEDS: FOLIC ACID 1 MG TAB PO SCH (08:36)
[2020-04-22] MEDS ORDERED: CEROVITE ADV FORMULA TAB PO SCH (09:00)
--- NOTE | 2020-04-22 15:49 | Discharge Summary ---
Date of Service April 22, 2020 Admission HPI Per Admitting Provider Virgil Bartholomew is a 25yo C male presenting for alcohol detoxification. He reports heavy EtOH consumption over the past few years. Over the last year he has been drinking mainly beer - consumes 8-12 beers per day, at times more than 15 per day. He drinks whiskey on the weekends and will drink a handle of whiskey over two days. He was seen at [facility] on 04/13/20 with complaint of testicular pain and rectal bleeding. He had labs at that time which revealed elevated transaminase levels (DHL=773 and SRT=513) He also had CT imaging that confirmed marked fatty infiltration of the liver. Patient was counselled on his EtOH consumption at that time. Since then he has been trying to cut down on his alcohol intake and make positive life changes. He has been significantly decreasing his EtOH intake over the last three days - still drinking every 2 hours or so. He had an episode of altered sensorium today - transient confusion, forgetfulness and memory loss. He states he felt "very out of place". This is what prompted him to come to the ER. 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 He is and lives with his . He works from home and denies any sick contacts or positive Covid-19 contacts. No seizure No fevers/chills/CP/cough/SOB/nausea/vomiting/constipation. He has had some diarrhea. No additional complaints. ER Course: Ativan 1mg, Banana bag Principal Diagnosis Alcohol withdrawal Discharge Exam Constitutional WD/WN, vitals as above Eyes EOM intact bilaterally; no conjunctival abnormality ENMT external ear and nose normal, oropharynx normal Neck trachea midline, no thyromegaly normal visual inspection Respiratory normal respiratory effort, lungs clear to auscultation no respiratory distress Cardiovascular RRR, no murmur, no edema Gastrointestinal (Abdomen) Inspection/Auscultation: abdomen normal to inspection; abdomen not distended Musculoskeletal no cyanosis or clubbing, extremities motor strength 5/5 Skin no rashes, warm and dry Neurologic moves all extremities and awake Psychiatric Orientation: alert, oriented to person and cooperative Discharge Data Allergies Allergy/AdvReac Type Severity Reaction Status Date / Time No Known Allergies Allergy Unverified 04/20/20 03:36 Consultations 04/20/20 05:28 ED Decision to Admit Stat Hospital Course (1) Alcohol withdrawal: Had confusion just prior to admission. This resolved on hospital day #1. Withdrawal appears to be mild based on IV ativan usage. Continues with gabapentin protocol. Continue thiamine 200mg BID, folic acid, MVI. Cut fluid rate to 50cc/hr - patient overall eating well. Discharged on last 2 doses of gabapentin. No withdrawal symptoms in the 24 hours prior to discharge. He declines inpatient etoh rehab. Wishes to do outpatient programs. Will see [facility] on Friday and PCP next week. (2) Alcohol dependence: Severe etoh intake (10-15+ drinks/day). Now with withdrawal. See above. (3) Transaminitis: Likely alcoholic hepatitis. Improving AST and ALT. - Recheck both in 1-2 weeks off EToH. (4) Sore throat: In light of COVID-19 spread in the [place] area and on the [facility] campus - and given his new sore throat with myalgias - elected to obtain COVID-19 test today. This returned negative. (5) Myalgia: In thighs. No swelling. No real tenderness on exam. COVID-19 testing negative. - Monitor x 1-2 days. (6) DVT prophylaxis: Low risk. Total Time Total Time Spent Total Time Spent (In Minutes): 35 Discharge Plan Discharge Items Patient Disposition: Home - Self-Care Reason For Visit: ALCOHOL WITHDRAWAL Discharge Diagnosis: Alcohol withdrawal Activity: Resume your previous activity Non-emergency contact: Primary Care Provider and Psychiatrist Call non-emergency contact if: your symptoms worsen Follow-up/Referrals: [facility] [Primary Care Provider] - Diet: Regular Addtl Attending Provider Instructions: Mr. Bartholomew, You were admitted with alcohol withdrawal symptoms. We were able to use medication to help smooth out your withdrawal. Please take the gabapentin 600 mg tablet tonight and then tomorrow morning, then you will be done. Please follow up with the [facility] mental health clinic on Friday to discuss your addiction and ways to help you stay sober. We also sent a pair of B vitamins to your pharmacy to keep your bone marrow and nerves healthy after alcohol exposure. A simple multivitamin should also be fine if you pick one up at your pharmacy. We wish you the best! Pending Studies at Discharge: No Stand-Alone Forms: [facility], Smoking Cessation Medications and DC Order Prescriptions: New gabapentin 600 mg Tablet 600 mg PO Q12H Qty: 2 RF: 0 folic acid 1 mg Tablet 1 mg PO QAM Qty: 30 RF: 0 thiamine HCl (vitamin B1) 100 mg tablet 100 mg PO DAILY Qty: 30 RF: 0 Continued lidocaine 5 % adhesive patch,medicated 1 patch TOP DAILY Qty: 15 RF: 0 Discharge Orders: Discharge Order (Routine); Ordered 04/22/20 Ordered By: Stephan Eason Admission Data Admit Date/Time: 04/20/20 06:18 Attending Provider: Stephan Eason Admit Provider: Angeline Mullen Primary Care Provider: [facility] Other Providers: Stephan Eason Other Interventions: Discharge Summary Assessment (RN) Last Done: 04/22/20 11:19 Coding Level of Care Code D/C Day Management >30 mins Diagnoses Alcohol withdrawal F10.231 Complication of substance-induced condition: with delirium Alcohol dependence F10.232 Substance use status: in withdrawal Complication of substance-induced condition: with perceptual disturbance Transaminitis R74.0 Sore throat J02.9 Myalgia M79.10 DVT prophylaxis Z29.9
[2020-04-23] MEDS ORDERED: GABAPENTIN 600 MG TAB PO SCH (20:00)
== END 2020-04-22 12:55 | disposition home or self-care (01) | DRG 897 ==
LOC: ED 03:22 → 2E 06:18 → SUATTDRO 06:18 → 2E 07:04
DX: F10.232 Alcohol dependence with withdrawal with perceptual disturbance; K70.10 Alcoholic hepatitis without ascites; J02.9 Acute pharyngitis, unspecified; M79.10 Myalgia, unspecified site; Y90.9 Presence of alcohol in blood, level not specified; K76.0 Fatty (change of) liver, not elsewhere classified; Z20.828 Contact with and (suspected) exposure to other viral communicable diseases; E87.1 Hypo-osmolality and hyponatremia